=== PATIENT | female | born 1965 | race Hispanic/Latino ===

== ENCOUNTER 2018-05-10 23:45 | Emergency (ER) | payer SELFPAY ==
[~2018-05-10] VITALS: Ht 157.5 cm; Wt 102.1 kg
[~2018-05-10 23:45] MED LIST: METOPROLOL SUCC25 MG; NORVASC10 MG
--- OUTSIDE RECORDS SUMMARY | 2018-05-10 23:48 | XMS REPORT ---
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 Allergies, Adverse Reactions, Alerts This patient has no known allergies or adverse reactions. Medications This patient has no known medications.
--- OUTSIDE RECORDS SUMMARY | 2018-05-10 23:48 | XMS REPORT | Clinical Summary ---
Author Author [facility] Organization [facility] Address Unknown Phone Unavailable Care Team Providers Care Condominium Manager Name Role Phone PCP Unavailable Allergies Not on File Medications Not on file Active Problems Not on file Encounters Care Team Description Date Type Specialty Tomas Feliz MD 10/03/2017 Lab Lab Tomas Feliz MD 10/02/2017 Lab Lab after 05/09/2017 Social History Date Tobacco Use Types Packs/Day Years Used Never Assessed Sex Assigned at Date Recorded Not on file Industry Job Start Date Occupation Not on file Not on file Not on file Travel End Travel History Travel Start No recent travel history available. Last Filed Vital Signs Not on file Plan of Treatment Health Maintenance Due Date Last Done Comments CERVICAL CANCER SCREENING 01/03/1984 BREAST CANCER SCREENING 2013 COLON CANCER SCREENING 2013 SHINGLES VACCINES ( of 2013 2) INFLUENZA VACCINE 11/22/2017 Procedures Comments Procedure Name Priority Date/Time Associated Diagnosis SURGICAL PATHOLOGY Routine 10/03/2017 REQUEST 11:48 AM CDT after 05/09/2017 Results * Surgical pathology request (10/03/2017 11:48 AM CDT) [facility] DEPARTMENT OF PATHOLOGY AND GENOMIC MEDICINE Surgical pathology report See link below for PDF Lab [facility] DEPARTMENT OF Report PATHOLOGY AND GENOMIC MEDICINE Result status This is Final Report to [facility] DEPARTMENT OF [id number] PATHOLOGY AND GENOMIC MEDICINE Performing Organization Address City/State/Zipcode Phone Number [facility] DEPARTMENT OF [address] [place] [phone] PATHOLOGY AND GENOMIC MEDICINE after 05/09/2017 Insurance Payer Benefit Subscriber ID Type Phone Address Plan / Group MISC EXCHANGE AMBETTER xxxxxxxxxxx Exchange FROM [facility] Advance Directives Patient has advance care planning documents on file. For more information, marcelo e contact: Shane Vega [phone] [place] [address]
== END 2018-05-11 01:19 | disposition left against medical advice (07) ==
LOC: ER 23:45
DX: M54.5 Low back pain (principal)